=== PATIENT | female | born 1960 | race African-American/Black ===

== ENCOUNTER 2017-09-26 04:40 | Inpatient (IN) ==
[2017-09-26] MEDS ORDERED: SODIUM CHLORIDE 0.9% 500 ML IV STA (05:14)
[2017-09-26 06:00] LABS: Partial Thromboplastin Time 21.5 SECS (0-40)
[2017-09-26 06:03] LABS: Apearance,Urine Slightly Hazy (Clear); Bilirubin,Urine Negative (Negative); Blood, Urine Negative (Negative); Glucose,Urine (UA) Negative (Negative); Hyaline Casts,Urine 1 /LPF (0-3); Ketones,Urine Negative (Negative); Mucus,Urine Moderate /LPF (Occasional); Nitrite,Urine Negative (Negative); Protein,Urine Negative; RBC,Urine 1 /HPF (0-4); Squamous Epithelial Cell,Urine Occasional /HPF (0-10); Urine Color Yellow (Yellow); Urine Specific Gravity 1.016 (1.001-1.035); Urine Urobilinogen < 2.0 EU/DL (0.2-1.0); WBC,Urine 1 /HPF (0-6)
[2017-09-26 06:04] LABS: Basophils % 0.2 % (0.0-0.8); Eosinophils # 0.1 10*3/uL (0.0-0.87); Immature Granulocytes % 0.7 %; Immature Granulocytes Absolute 0.07 #; Lymphocytes % 9.9 % (21.3-54.2); Mean Corpuscular HGB Conc 24.6 GM/DL (32-36); Mean Corpuscular Hemoglobin 15 PG (27-34); Mean Corpuscular Volume 59.6 FL (87-102); Monocytes # 0.4 10*3/uL (0.11-0.8); Monocytes % 4.5 % (1.7-12.7); NRBC # 0.08 10*3/uL; Neutrophils # 8.2 10*3/uL (1.4-7.4); Neutrophils % 83.7 % (38.7-73.9); Platelet Count 83 T/CUMM (130-400); Red Cell Distribution Width 19.4 % (9.3-17.3); White Blood Count 9.8 T/CUMM (4-12)
[2017-09-26 06:08] LABS: Hematocrit 16.7 VOL% (35.7-47.0); Hemoglobin 4.4 GM/DL (12.0-16.0)
[2017-09-26 06:25] LABS: Alanine Aminotransferase < 9 U/L (13-56); Albumin 2.7 G/DL (3.4-5.0); Alkaline Phosphatase 81 U/L (45-117); Aspartate Amino Transferase 12 U/L (0-37); Bilirubin,Total < 0.39 MG/DL (0.2-1.0); Blood Urea Nitrogen 10 MG/DL (7-18); Glucose 119 MG/DL (74-106); Osmolality,Calculated 276.5 MOS/KG (273-304); Potassium 3.2 MMOL/L (3.5-5.1); Sodium 139 MMOL/L (136-145); Total Protein 8.8 G/DL (6.4-8.3)
[2017-09-26 06:59] LABS: Eosinophils 1 % (0-10); Lymphocytes 6 % (20-55); Segmented Neutrophils 90 % (50-85); Total Cells Counted 100
[2017-09-26 07:00] LABS: Hypochromasia 3+; Microcytosis 2+; Platelet Estimate Decreased; Target Cells Slight
[2017-09-26] MEDS ORDERED: POTASSIUM CHLORIDE 20 MEQ TABLET PO STA (07:07)
[2017-09-26] MEDS ORDERED: SODIUM CHLORIDE 0.9% 1,000 ML IV PRN (07:13)
[2017-09-26] MEDS ORDERED: POTASSIUM CHLORIDE 20 MEQ TABLET PO ONE (07:19)
[2017-09-26] MEDS ORDERED: ACETAMINOPHEN 500 MG TABLET PO PRN (11:54)
[2017-09-26] MEDS ORDERED: amLODIPine 5 MG TABLET PO SCH (12:00)
[2017-09-26] MEDS ORDERED: hydrALAZINE 20 MG/1 ML VIAL IV PRN (19:35)
[2017-09-27] MEDS ORDERED: ENALAPRIL 2.5 MG/2 ML VIAL IV PRN (00:35)
[2017-09-27 06:53] LABS: Basophils % 0.4 % (0.0-0.8); Eosinophils # 0.1 10*3/uL (0.0-0.87); Eosinophils % 1.3 % (0.00-10.9); Hematocrit 28.1 VOL% (35.7-47.0); Immature Granulocytes % 0.5 %; Immature Granulocytes Absolute 0.04 #; Lymphocytes # 1.5 10*3/uL (1.4-4.0); Lymphocytes % 19.7 % (21.3-54.2); Mean Corpuscular HGB Conc 29.2 GM/DL (32-36); Mean Corpuscular Hemoglobin 20 PG (27-34); Monocytes # 0.6 10*3/uL (0.11-0.8); Monocytes % 7.8 % (1.7-12.7); NRBC # 0.08 10*3/uL; Neutrophils # 5.2 10*3/uL (1.4-7.4); Neutrophils % 70.3 % (38.7-73.9); Red Cell Distribution Width 26.7 % (9.3-17.3); White Blood Count 7.4 T/CUMM (4-12)
[2017-09-27 06:58] LABS: Hemoglobin 8.2 GM/DL (12.0-16.0); Platelet Count 67 T/CUMM (130-400); Red Blood Count 4.07 MC/CUMM (3.8-5.5)
[2017-09-27 07:20] LABS: % Iron Saturation 5.3 % (18-50); Calcium 8.1 MG/DL (8.5-10.1); Osmolality,Calculated 271.7 MOS/KG (273-304); Potassium 3.5 MMOL/L (3.5-5.1)
[2017-09-27 07:23] LABS: Hypochromasia 2+; Microcytosis 1+; Ovalocytes Few; Spherocytes Few; Target Cells Slight
[2017-09-27 07:24] LABS: Platelet Estimate Decreased
[2017-09-27] MEDS ORDERED: amLODIPine 10 MG TABLET PO SCH (09:00)
[2017-09-27] MEDS ORDERED: hydroCHLOROthiazide 12.5 MG CAPSULE PO SCH (09:00)
[2017-09-27] MEDS ORDERED: SEVOFLURANE 1 UNIT/15 MINUTE INH ONE (10:51)
[2017-09-27] MEDS ORDERED: PROPOFOL 200 MG/20 ML VIAL IV ONE (10:51)
[2017-09-27] MEDS ORDERED: fentaNYL 100 MCG/2 ML VIAL ONE (10:51)
[2017-09-27] MEDS ORDERED: ONDANSETRON 4 MG/2 ML VIAL ONE (10:52)
[2017-09-27] MEDS ORDERED: SODIUM CHLORIDE 0.9% 1,000 ML IV ONE (10:52)
[2017-09-27] MEDS ORDERED: MIDAZOLAM 2 MG/2 ML VIAL ONE (10:52)
[2017-09-27 14:25] VITALS: BP 161/92
== END 2017-09-27 14:45 | disposition hospice, home (50) | DRG 744 ==
LOC: EDUNIT# → N.ED 04:40 → N.EDINP 07:58 → N.4E 09:48
PROVIDERS: ADMIT Hospitalist; ATTEND Hospitalist

== ENCOUNTER 2018-09-19 15:40 | Inpatient (IN) ==
[2018-09-19] MEDS ORDERED: MORPHINE 4 MG/1 ML VIAL IV STA (15:50)
[2018-09-19] MEDS ORDERED: ONDANSETRON 4 MG/2 ML VIAL IV STA (15:51)
[2018-09-19] MEDS ORDERED: ASPIRIN 325 MG TABLET PO STA ×2 (15:52→15:54)
[2018-09-19] MEDS ORDERED: HEPARIN 5,000 UNIT/1 ML VIAL IV ONE (15:54)
[2018-09-19] MEDS ORDERED: HEPARIN 5,000 UNIT/1 ML VIAL ONE ×2 (15:54→16:15)
[2018-09-19] MEDS ORDERED: LIDOCAINE 1% 20 ML VIAL ONE (16:00)
[2018-09-19] MEDS ORDERED: HEPARIN/NACL 0.9% 2 UNITS/ML 1,500 ML IV ONE (16:00)
[2018-09-19 16:09] LABS: Basophils % 0.3 % (0.0-0.8); Eosinophils # 0.2 10*3/uL (0.0-0.87); Eosinophils % 1.6 % (0.00-10.9); Immature Granulocytes % 0.7 %; Immature Granulocytes Absolute 0.08 #; Lymphocytes # 1.2 10*3/uL (1.4-4.0); Lymphocytes % 10.1 % (21.3-54.2); Mean Corpuscular HGB Conc 26.8 GM/DL (32-36); Mean Corpuscular Hemoglobin 18 PG (27-34); Mean Corpuscular Volume 65.7 FL (87-102); Monocytes # 0.6 10*3/uL (0.11-0.8); Monocytes % 4.9 % (1.7-12.7); NRBC # 0.05 10*3/uL; Neutrophils # 9.8 10*3/uL (1.4-7.4); Neutrophils % 82.4 % (38.7-73.9); Platelet Count 451 T/CUMM (130-400); Red Blood Count 2.89 MC/CUMM (3.8-5.5); Red Cell Distribution Width 18.4 % (9.3-17.3); White Blood Count 11.9 T/CUMM (4-12)
[2018-09-19] MEDS ORDERED: fentaNYL 100 MCG/2 ML VIAL ONE (16:09)
[2018-09-19] MEDS ORDERED: MIDAZOLAM 2 MG/2 ML VIAL ONE (16:09)
[2018-09-19] MEDS ORDERED: EPTIFIBATIDE 75 MG/100 ML BOTTLE IV ONE (16:10)
[2018-09-19] MEDS ORDERED: EPTIFIBATIDE 20,000 MCG/10 ML VIAL ONE (16:10)
[2018-09-19] MEDS ORDERED: AMIODARONE 150 MG/3 ML VIAL ONE ×3 (16:17→17:21)
[2018-09-19] MEDS ORDERED: NITROGLYCERIN DRIP 50 MG/250 ML BOTTLE IV ONE (16:18)
[2018-09-19 16:19] LABS: Hemoglobin 5.1 GM/DL (12.0-16.0); INR 1.1; PT Patient Result 11.1 SECS; Partial Thromboplastin Time 26.2 SECS (0-40)
[2018-09-19 16:35] LABS: Alanine Aminotransferase 9 U/L (13-56); Alkaline Phosphatase 88 U/L (45-117); Aspartate Amino Transferase 11 U/L (0-37); Bilirubin,Total < 0.39 MG/DL (0.2-1.0); Blood Urea Nitrogen 13 MG/DL (7-18); Calcium 8.9 MG/DL (8.5-10.1); Glucose 125 MG/DL (74-106); Osmolality,Calculated 275.7 MOS/KG (273-304); Potassium 3.4 MMOL/L (3.5-5.1); Sodium 138 MMOL/L (136-145); Total Protein 8.7 G/DL (6.4-8.3)
[2018-09-19] MEDS ORDERED: SODIUM CHLORIDE 0.9% 1,000 ML IV PRN ×2 (16:50→16:59)
[2018-09-19] MEDS ORDERED: BISACODYL 5 MG TABLET PO PRN (16:59)
[2018-09-19] MEDS ORDERED: MAGNESIUM SULF RIDER 2 GM in PREMIX 1 EACH IV PRN (16:59)
[2018-09-19] MEDS ORDERED: ZALEPLON 5 MG CAPSULE PO PRN (16:59)
[2018-09-19] MEDS ORDERED: ONDANSETRON 4 MG/2 ML VIAL IV PRN (16:59)
[2018-09-19] MEDS ORDERED: MAGNESIUM SULF RIDER 4 GM in PREMIX 1 EACH IV PRN (16:59)
[2018-09-19] MEDS ORDERED: guaiFENesin/DM ER 600-30 MG TABLET PO PRN (16:59)
[2018-09-19] MEDS ORDERED: ACETAMINOPHEN 325 MG TABLET PO PRN (16:59)
[2018-09-19] MEDS ORDERED: DOCUSATE SODIUM 100 MG CAPSULE PO PRN (16:59)
[2018-09-19] MEDS ORDERED: PANTOPRAZOLE 40 MG TABLET PO SCH (16:59)
[2018-09-19] MEDS ORDERED: CLOPIDOGREL 300 MG TABLET ONE (17:20)
[2018-09-19 17:33] LABS: Hypochromasia 2+
[2018-09-19 17:35] LABS: Microcytosis 1+
[2018-09-19 17:36] LABS: Ovalocytes Slight
[2018-09-19 17:38] LABS: Platelet Estimate Normal
[2018-09-19] MEDS ORDERED: SODIUM CHLORIDE 0.9% 1,000 ML IV SCH (18:30)
[2018-09-19] MEDS ORDERED: ATROPINE 1 MG/10 ML SYRINGE ONE (18:50)
[2018-09-19] MEDS ORDERED: ACETAMINOPHEN 500 MG TABLET PO PRN (19:03)
[2018-09-19] MEDS: ROSUVASTATIN 20 MG TABLET PO SCH (21:02)
[2018-09-19] MEDS: METOPROLOL TARTRATE 25 MG TABLET PO SCH (21:02)
[2018-09-19] MEDS: PANTOPRAZOLE 40 MG TABLET PO SCH (21:02)
[2018-09-19] MEDS: POTASSIUM CHLORIDE 20 MEQ TABLET PO PRN (21:02)
[2018-09-20] MEDS: POTASSIUM CHLORIDE 20 MEQ TABLET PO PRN ×2 (00:18→06:39)
[2018-09-20 06:08] LABS: Basophils % 0.1 % (0.0-0.8); Eosinophils % 0.1 % (0.00-10.9); Hematocrit 28.9 VOL% (35.7-47.0); Hemoglobin 8.8 GM/DL (12.0-16.0); Immature Granulocytes % 0.7 %; Immature Granulocytes Absolute 0.05 #; Lymphocytes # 0.6 10*3/uL (1.4-4.0); Lymphocytes % 8.8 % (21.3-54.2); Mean Corpuscular HGB Conc 30.4 GM/DL (32-36); Mean Corpuscular Hemoglobin 23 PG (27-34); Mean Corpuscular Volume 76.5 FL (87-102); Monocytes # 0.4 10*3/uL (0.11-0.8); Monocytes % 5.3 % (1.7-12.7); NRBC # 0.03 10*3/uL; Platelet Count 308 T/CUMM (130-400); Red Blood Count 3.78 MC/CUMM (3.8-5.5); Red Cell Distribution Width 24.4 % (9.3-17.3)
[2018-09-20 06:27] LABS: CKMB % 10.6 %
[2018-09-20 06:28] LABS: Calcium 8.2 MG/DL (8.5-10.1); Osmolality,Calculated 277.4 MOS/KG (273-304); Risk Ratio 3.1; VLDL CHOLESTEROL 20.6 MG/DL
[2018-09-20 06:36] LABS: Troponin I 20.5 NG/ML (0.00-0.045)
[2018-09-20 07:12] LABS: Anisocytosis 1+; Hypochromasia 1+; Platelet Estimate Normal
[2018-09-20 07:13] LABS: Target Cells Few
[2018-09-20 07:43] LABS: Basophils % 0.1 % (0.0-0.8); Eosinophils % 0.3 % (0.00-10.9); Hematocrit 28.6 VOL% (35.7-47.0); Hemoglobin 8.9 GM/DL (12.0-16.0); Immature Granulocytes % 0.6 %; Immature Granulocytes Absolute 0.04 #; Lymphocytes # 0.6 10*3/uL (1.4-4.0); Lymphocytes % 8.3 % (21.3-54.2); Mean Corpuscular HGB Conc 31.1 GM/DL (32-36); Mean Corpuscular Hemoglobin 24 PG (27-34); Mean Corpuscular Volume 77.1 FL (87-102); Mean Platelet Volume 8.9 FL (9.6-12.0); Monocytes # 0.4 10*3/uL (0.11-0.8); Monocytes % 5.9 % (1.7-12.7); NRBC # 0.03 10*3/uL; Neutrophils % 84.8 % (38.7-73.9); Platelet Count 312 T/CUMM (130-400); Red Blood Count 3.71 MC/CUMM (3.8-5.5); Red Cell Distribution Width 24.3 % (9.3-17.3); White Blood Count 7.1 T/CUMM (4-12)
[2018-09-20 07:48] LABS: Anisocytosis 2+; Platelet Estimate Normal; Poikilocytosis 1+
[2018-09-20] MEDS: CLOPIDOGREL 75 MG TABLET PO SCH (08:31)
[2018-09-20] MEDS: ASPIRIN EC 81 MG TABLET PO SCH (08:31)
[2018-09-20] MEDS: PANTOPRAZOLE 40 MG TABLET PO SCH ×2 (08:31→21:31)
[2018-09-20] MEDS ORDERED: diphenhydrAMINE CAP 25 MG CAPSULE PO PRN (09:51)
[2018-09-20] MEDS ORDERED: MAGNESIUM HYDROXIDE SUSP 30 ML UDCUP PO PRN (09:51)
[2018-09-20 10:01] LABS: % Iron Saturation 18.1 % (18-50); Ferritin 14.4 ng/ml (8-252)
[2018-09-20 10:41] LABS: Basophils % 0.2 % (0.0-0.8); Eosinophils % 0.3 % (0.00-10.9); Hematocrit 32.4 VOL% (35.7-47.0); Immature Granulocytes % 0.5 %; Immature Granulocytes Absolute 0.04 #; Lymphocytes # 0.9 10*3/uL (1.4-4.0); Mean Corpuscular HGB Conc 30.9 GM/DL (32-36); Mean Corpuscular Hemoglobin 24 PG (27-34); Mean Corpuscular Volume 77.7 FL (87-102); Mean Platelet Volume 8.8 FL (9.6-12.0); Monocytes # 0.6 10*3/uL (0.11-0.8); Monocytes % 6.4 % (1.7-12.7); NRBC # 0.05 10*3/uL; Neutrophils # 7.2 10*3/uL (1.4-7.4); Neutrophils % 82.6 % (38.7-73.9); Platelet Count 329 T/CUMM (130-400); Red Blood Count 4.17 MC/CUMM (3.8-5.5); Red Cell Distribution Width 24.4 % (9.3-17.3); White Blood Count 8.8 T/CUMM (4-12)
[2018-09-20 11:23] LABS: Hypochromasia 1+; Platelet Estimate Normal
[2018-09-20 11:24] LABS: Anisocytosis Slight
[2018-09-20 11:26] LABS: Folate 12.7 NG/ML (5.4-24.0); Vitamin B12 352 PG/ML (211-911)
[2018-09-20] MEDS: METOPROLOL TARTRATE 25 MG TABLET PO SCH ×2 (12:42→21:31)
[2018-09-20 16:10] LABS: Sedimentation Rate-Westergren 102 MM/HR (0-30)
[2018-09-20 16:13] LABS: Basophils % 0.3 % (0.0-0.8); Eosinophils # 0.1 10*3/uL (0.0-0.87); Eosinophils % 0.7 % (0.00-10.9); Hematocrit 30.2 VOL% (35.7-47.0); Hemoglobin 9.4 GM/DL (12.0-16.0); Immature Granulocytes % 0.6 %; Immature Granulocytes Absolute 0.05 #; Lymphocytes % 11.9 % (21.3-54.2); Mean Corpuscular HGB Conc 31.1 GM/DL (32-36); Mean Corpuscular Hemoglobin 24 PG (27-34); Mean Corpuscular Volume 77.2 FL (87-102); Mean Platelet Volume 9.3 FL (9.6-12.0); Monocytes # 0.5 10*3/uL (0.11-0.8); Monocytes % 5.5 % (1.7-12.7); NRBC # 0.03 10*3/uL; Platelet Count 319 T/CUMM (130-400); Red Blood Count 3.91 MC/CUMM (3.8-5.5); Red Cell Distribution Width 24.3 % (9.3-17.3); White Blood Count 8.6 T/CUMM (4-12)
[2018-09-20] MEDS: ROSUVASTATIN 20 MG TABLET PO SCH (21:31)
[2018-09-20 22:45] LABS: Basophils % 0.1 % (0.0-0.8); Eosinophils # 0.1 10*3/uL (0.0-0.87); Eosinophils % 1.4 % (0.00-10.9); Hematocrit 29.2 VOL% (35.7-47.0); Hemoglobin 8.9 GM/DL (12.0-16.0); Immature Granulocytes % 0.4 %; Immature Granulocytes Absolute 0.03 #; Lymphocytes % 13.1 % (21.3-54.2); Mean Corpuscular HGB Conc 30.5 GM/DL (32-36); Mean Corpuscular Hemoglobin 23 PG (27-34); Mean Corpuscular Volume 76.4 FL (87-102); Monocytes # 0.4 10*3/uL (0.11-0.8); Monocytes % 5.1 % (1.7-12.7); NRBC # 0.02 10*3/uL; Neutrophils # 6.1 10*3/uL (1.4-7.4); Neutrophils % 79.9 % (38.7-73.9); Platelet Count 294 T/CUMM (130-400); Red Blood Count 3.82 MC/CUMM (3.8-5.5); Red Cell Distribution Width 24.4 % (9.3-17.3); White Blood Count 7.6 T/CUMM (4-12)
[2018-09-21 01:05] LABS: Hypochromasia Slight; Platelet Estimate Adequate; Polychromasia Few
[2018-09-21 05:39] LABS: Basophils % 0.4 % (0.0-0.8); Eosinophils # 0.2 10*3/uL (0.0-0.87); Eosinophils % 2.1 % (0.00-10.9); Hemoglobin 9.1 GM/DL (12.0-16.0); Immature Granulocytes % 0.4 %; Immature Granulocytes Absolute 0.03 #; Lymphocytes # 0.9 10*3/uL (1.4-4.0); Lymphocytes % 10.6 % (21.3-54.2); Mean Corpuscular HGB Conc 30.3 GM/DL (32-36); Mean Corpuscular Hemoglobin 23 PG (27-34); Mean Corpuscular Volume 76.5 FL (87-102); Mean Platelet Volume 9.4 FL (9.6-12.0); Monocytes # 0.4 10*3/uL (0.11-0.8); Monocytes % 4.4 % (1.7-12.7); NRBC # 0.02 10*3/uL; Neutrophils # 6.7 10*3/uL (1.4-7.4); Neutrophils % 82.1 % (38.7-73.9); Platelet Count 322 T/CUMM (130-400); Red Blood Count 3.92 MC/CUMM (3.8-5.5); Red Cell Distribution Width 24.7 % (9.3-17.3); White Blood Count 8.1 T/CUMM (4-12)
[2018-09-21 05:55] LABS: Calcium 8.4 MG/DL (8.5-10.1); Osmolality,Calculated 271.8 MOS/KG (273-304)
[2018-09-21 06:34] LABS: Hypochromasia 1+; Microcytosis 1+; Platelet Estimate Normal; Polychromasia Few; Target Cells Few
[2018-09-21] MEDS: PANTOPRAZOLE 40 MG TABLET PO SCH ×2 (08:52→21:07)
[2018-09-21] MEDS: ASPIRIN EC 81 MG TABLET PO SCH (08:52)
[2018-09-21] MEDS: METOPROLOL TARTRATE 25 MG TABLET PO SCH ×2 (08:52→21:07)
[2018-09-21] MEDS: CLOPIDOGREL 75 MG TABLET PO SCH (08:52)
[2018-09-21] MEDS: ROSUVASTATIN 20 MG TABLET PO SCH (21:07)
[2018-09-22 06:34] LABS: Basophils % 0.3 % (0.0-0.8); Eosinophils # 0.2 10*3/uL (0.0-0.87); Hematocrit 29.3 VOL% (35.7-47.0); Hemoglobin 8.8 GM/DL (12.0-16.0); Immature Granulocytes % 0.3 %; Immature Granulocytes Absolute 0.02 #; Lymphocytes # 0.7 10*3/uL (1.4-4.0); Lymphocytes % 10.4 % (21.3-54.2); Mean Corpuscular Hemoglobin 23 PG (27-34); Mean Corpuscular Volume 76.1 FL (87-102); Mean Platelet Volume 9.4 FL (9.6-12.0); Monocytes # 0.4 10*3/uL (0.11-0.8); Monocytes % 5.8 % (1.7-12.7); Neutrophils # 5.7 10*3/uL (1.4-7.4); Neutrophils % 80.2 % (38.7-73.9); Platelet Count 324 T/CUMM (130-400); Red Blood Count 3.85 MC/CUMM (3.8-5.5); Red Cell Distribution Width 25.2 % (9.3-17.3); White Blood Count 7.1 T/CUMM (4-12)
[2018-09-22 07:01] LABS: Calcium 8.2 MG/DL (8.5-10.1); Potassium 3.5 MMOL/L (3.5-5.1)
[2018-09-22] MEDS: CLOPIDOGREL 75 MG TABLET PO SCH (08:22)
[2018-09-22] MEDS: ASPIRIN EC 81 MG TABLET PO SCH (08:22)
[2018-09-22] MEDS: METOPROLOL TARTRATE 25 MG TABLET PO SCH (08:22)
[2018-09-22] MEDS: PANTOPRAZOLE 40 MG TABLET PO SCH (08:22)
[2018-09-22] MEDS ORDERED: METOPROLOL TARTRATE 50 MG TABLET PO SCH (12:22)
[2018-09-22 16:48] VITALS: BP 159/92
== END 2018-09-22 18:00 | disposition home or self-care (01) | DRG 246 ==
LOC: EDBD → EDUNIT# → N.ED 15:40 → N.ICU 15:58 → SUATTDRO 16:03 → N.EDINP 16:03 → N.ICU 16:18 → N.TELEN 09-20 14:43
PROVIDERS: ADMIT Internal Medicine Cardiovascular Disease; ATTEND Internal Medicine
PROC: CLCCHCL (ICD-10-PCS; 2018-09-19 16:15)

== ENCOUNTER 2018-11-10 08:48 | Inpatient (IN) ==
[2018-11-10 10:24] LABS: Albumin 2.1 G/DL (3.4-5.0); Bilirubin,Total 0.4 MG/DL (0.2-1.0); Calcium 7.9 MG/DL (8.5-10.1); Osmolality,Calculated 259.8 MOS/KG (273-304); Potassium 3.8 MMOL/L (3.5-5.1); Total Protein 8.2 G/DL (6.4-8.3)
[2018-11-10 10:43] LABS: Basophils % 0.2 % (0.0-0.8); Eosinophils % 0.2 % (0.00-10.9); Immature Granulocytes % 1.4 %; Immature Granulocytes Absolute 0.17 #; Lymphocytes # 0.9 10*3/uL (1.4-4.0); Lymphocytes % 7.2 % (21.3-54.2); Mean Corpuscular HGB Conc 29.9 GM/DL (32-36); Mean Corpuscular Hemoglobin 23 PG (27-34); Mean Corpuscular Volume 78.5 FL (87-102); Mean Platelet Volume 9.1 FL (9.6-12.0); Monocytes # 0.9 10*3/uL (0.11-0.8); Monocytes % 7.5 % (1.7-12.7); NRBC # 0.03 10*3/uL; Neutrophils # 10.3 10*3/uL (1.4-7.4); Neutrophils % 83.5 % (38.7-73.9); Platelet Count 355 T/CUMM (130-400); Red Blood Count 2.09 MC/CUMM (3.8-5.5); Red Cell Distribution Width 21.4 % (9.3-17.3); White Blood Count 12.3 T/CUMM (4-12)
[2018-11-10 10:52] LABS: Hemoglobin 4.9 GM/DL (12.0-16.0)
[2018-11-10 10:53] LABS: Hematocrit 16.4 VOL% (35.7-47.0)
[2018-11-10] MEDS ORDERED: SODIUM CHLORIDE 0.9% 1,000 ML IV PRN ×3 (11:10→22:43)
[2018-11-10] MEDS ORDERED: ONDANSETRON 4 MG/2 ML VIAL IV PRN (12:46)
[2018-11-10] MEDS ORDERED: ACETAMINOPHEN 500 MG TABLET PO STA (13:37)
[2018-11-10] MEDS ORDERED: ACETAMINOPHEN 500 MG TABLET ONE (13:38)
[2018-11-10] MEDS: LEVOFLOXACIN INJ 500 MG in PREMIX 1 EACH IV SCH (17:16)
[2018-11-10 22:15] LABS: Hematocrit 23.3 VOL% (35.7-47.0)
[2018-11-10 22:16] LABS: Hemoglobin 7.3 GM/DL (12.0-16.0)
[2018-11-10] MEDS: metroNIDAZOLE INJ 500 MG in PREMIX 1 EACH IV SCH (22:18)
[2018-11-10] MEDS: METOPROLOL TARTRATE 50 MG TABLET PO SCH (22:18)
[2018-11-10] MEDS: ROSUVASTATIN 10 MG TABLET PO SCH (22:18)
[2018-11-10] MEDS: PANTOPRAZOLE 40 MG VIAL IV SCH (22:18)
[2018-11-10 23:05] LABS: Apearance,Urine CLOUDY (Clear); Bacteria,Urine Occasional /HPF (Few); Bilirubin,Urine Negative (Negative); Blood, Urine Small mg/dL (Negative); Glucose,Urine (UA) Negative (Negative); Granular Casts,Urine 7 /LPF (0-1); Hyaline Casts,Urine 13 /LPF (0-3); Ketones,Urine Negative (Negative); Mucus,Urine Occasional /LPF (Occasional); Nitrite,Urine Negative (Negative); Protein,Urine 30 MG/DL; RBC,Urine 1 /HPF (0-4); Squamous Epithelial Cell,Urine Occasional /HPF (0-10); Urine Color Yellow (Yellow); Urine Specific Gravity 1.023 (1.001-1.035); Urine Urobilinogen < 2.0 EU/DL (0.2-1.0); WBC,Urine 7 /HPF (0-6)
[2018-11-11] MEDS ORDERED: SODIUM CHLORIDE 0.9% 1,000 ML IV PRN (00:03)
[2018-11-11] MEDS: metroNIDAZOLE INJ 500 MG in PREMIX 1 EACH IV SCH ×3 (05:32→18:38)
[2018-11-11 06:20] LABS: Basophils % 0.3 % (0.0-0.8); Eosinophils % 0.3 % (0.00-10.9); Hematocrit 27.5 VOL% (35.7-47.0); Hemoglobin 8.9 GM/DL (12.0-16.0); Immature Granulocytes % 1.7 %; Immature Granulocytes Absolute 0.19 #; Lymphocytes % 8.6 % (21.3-54.2); Mean Corpuscular HGB Conc 32.4 GM/DL (32-36); Mean Corpuscular Hemoglobin 26 PG (27-34); Mean Corpuscular Volume 81.4 FL (87-102); Mean Platelet Volume 8.7 FL (9.6-12.0); Monocytes # 0.8 10*3/uL (0.11-0.8); Monocytes % 7.1 % (1.7-12.7); NRBC # 0.06 10*3/uL; Neutrophils # 9.2 10*3/uL (1.4-7.4); Platelet Count 286 T/CUMM (130-400); Red Blood Count 3.38 MC/CUMM (3.8-5.5); Red Cell Distribution Width 17.4 % (9.3-17.3); White Blood Count 11.3 T/CUMM (4-12)
[2018-11-11 06:41] LABS: Calcium 8.3 MG/DL (8.5-10.1); Osmolality,Calculated 263.5 MOS/KG (273-304); Potassium 3.9 MMOL/L (3.5-5.1)
[2018-11-11] MEDS ORDERED: PANTOPRAZOLE 40 MG VIAL IV SCH (09:00)
[2018-11-11] MEDS ORDERED: PROPOFOL 200 MG/20 ML VIAL IV ONE (09:09)
[2018-11-11] MEDS: METOPROLOL TARTRATE 50 MG TABLET PO SCH ×2 (10:31→21:03)
[2018-11-11] MEDS: FERROUS SULFATE 325 MG TABLET PO SCH (10:31)
[2018-11-11] MEDS: ASPIRIN EC 81 MG TABLET PO SCH (10:32)
[2018-11-11] MEDS: BISACODYL 5 MG TABLET PO SCH ×2 (10:45→17:31)
[2018-11-11] MEDS ORDERED: hydrALAZINE 20 MG/1 ML VIAL IV PRN (13:13)
[2018-11-11] MEDS: LEVOFLOXACIN INJ 500 MG in PREMIX 1 EACH IV SCH (17:33)
[2018-11-11] MEDS: PANTOPRAZOLE 40 MG TABLET PO SCH (21:03)
[2018-11-11] MEDS: ROSUVASTATIN 10 MG TABLET PO SCH (21:03)
[2018-11-12] MEDS: BISACODYL 5 MG TABLET PO SCH (01:14)
[2018-11-12] MEDS: metroNIDAZOLE INJ 500 MG in PREMIX 1 EACH IV SCH ×3 (02:33→17:47)
[2018-11-12] MEDS: ACETAMINOPHEN 325 MG TABLET PO PRN (04:56)
[2018-11-12 06:26] LABS: Calcium 8.1 MG/DL (8.5-10.1); Osmolality,Calculated 260.7 MOS/KG (273-304); Potassium 3.5 MMOL/L (3.5-5.1)
[2018-11-12 06:41] LABS: Basophils % 0.2 % (0.0-0.8); Eosinophils # 0.1 10*3/uL (0.0-0.87); Eosinophils % 0.9 % (0.00-10.9); Hematocrit 25.5 VOL% (35.7-47.0); Immature Granulocytes % 1.2 %; Immature Granulocytes Absolute 0.11 #; Lymphocytes # 0.7 10*3/uL (1.4-4.0); Lymphocytes % 7.2 % (21.3-54.2); Mean Corpuscular HGB Conc 31.4 GM/DL (32-36); Mean Corpuscular Hemoglobin 26 PG (27-34); Mean Corpuscular Volume 82.5 FL (87-102); Mean Platelet Volume 8.7 FL (9.6-12.0); Monocytes # 0.6 10*3/uL (0.11-0.8); Monocytes % 6.9 % (1.7-12.7); NRBC # 0.02 10*3/uL; Neutrophils # 7.7 10*3/uL (1.4-7.4); Neutrophils % 83.6 % (38.7-73.9); Platelet Count 285 T/CUMM (130-400); Red Blood Count 3.09 MC/CUMM (3.8-5.5); Red Cell Distribution Width 18.1 % (9.3-17.3); White Blood Count 9.3 T/CUMM (4-12)
[2018-11-12] MEDS: METOPROLOL TARTRATE 50 MG TABLET PO SCH ×2 (08:55→20:59)
[2018-11-12] MEDS: ASPIRIN EC 81 MG TABLET PO SCH (08:55)
[2018-11-12] MEDS: PANTOPRAZOLE 40 MG TABLET PO SCH ×2 (08:55→20:59)
[2018-11-12] MEDS: FERROUS SULFATE 325 MG TABLET PO SCH (08:55)
[2018-11-12] MEDS ORDERED: VANCOMYCIN INJ 1,000 MG in SODIUM CHLORIDE 0.9% 250 ML IV SCH (09:00)
[2018-11-12] MEDS ORDERED: VANCOMYCIN INJ 1,500 MG in SODIUM CHLORIDE 0.9% 500 ML IV ONE (10:00)
[2018-11-12] MEDS: SODIUM CHLORIDE 0.9% 1,000 ML IV SCH (10:30)
[2018-11-12] MEDS: FUROSEMIDE 20 MG TABLET PO SCH (11:52)
[2018-11-12] MEDS: LEVOFLOXACIN INJ 500 MG in PREMIX 1 EACH IV SCH (17:46)
[2018-11-12] MEDS ORDERED: POLYETHYLENE GLYCOL POWDER 255 GM BOTTLE PO ONE (18:00)
[2018-11-12] MEDS: ROSUVASTATIN 10 MG TABLET PO SCH (20:59)
[2018-11-12] MEDS ORDERED: MAGNESIUM CITRATE 300 ML BOTTLE PO ONE (21:00)
[2018-11-12] MEDS: VANCOMYCIN INJ 1,250 MG in SODIUM CHLORIDE 0.9% 250 ML IV SCH (22:12)
[2018-11-13] MEDS: metroNIDAZOLE INJ 500 MG in PREMIX 1 EACH IV SCH ×3 (01:38→17:46)
[2018-11-13 05:13] LABS: Calcium 7.9 MG/DL (8.5-10.1); Osmolality,Calculated 270.8 MOS/KG (273-304); Potassium 3.2 MMOL/L (3.5-5.1)
[2018-11-13 05:14] LABS: Basophils % 0.3 % (0.0-0.8); Eosinophils # 0.1 10*3/uL (0.0-0.87); Eosinophils % 1.2 % (0.00-10.9); Hematocrit 24.9 VOL% (35.7-47.0); Hemoglobin 7.9 GM/DL (12.0-16.0); Immature Granulocytes % 1.1 %; Lymphocytes # 0.7 10*3/uL (1.4-4.0); Lymphocytes % 7.4 % (21.3-54.2); Mean Corpuscular HGB Conc 31.7 GM/DL (32-36); Mean Corpuscular Hemoglobin 26 PG (27-34); Mean Corpuscular Volume 82.5 FL (87-102); Mean Platelet Volume 8.8 FL (9.6-12.0); Monocytes # 0.6 10*3/uL (0.11-0.8); Monocytes % 7.1 % (1.7-12.7); Neutrophils # 7.3 10*3/uL (1.4-7.4); Neutrophils % 82.9 % (38.7-73.9); Platelet Count 281 T/CUMM (130-400); Red Blood Count 3.02 MC/CUMM (3.8-5.5); Red Cell Distribution Width 18.1 % (9.3-17.3); White Blood Count 8.8 T/CUMM (4-12)
[2018-11-13] MEDS ORDERED: FUROSEMIDE 20 MG/2 ML VIAL IV PRN (06:59)
[2018-11-13] MEDS ORDERED: SODIUM CHLORIDE 0.9% 1,000 ML IV PRN (06:59)
[2018-11-13] MEDS ORDERED: POTASSIUM CHLORIDE RIDER 10 MEQ in PREMIX 1 EACH IV PRN (09:19)
[2018-11-13] MEDS: FUROSEMIDE 20 MG TABLET PO SCH (09:53)
[2018-11-13] MEDS: PANTOPRAZOLE 40 MG TABLET PO SCH ×2 (09:53→20:35)
[2018-11-13] MEDS: ASPIRIN EC 81 MG TABLET PO SCH (09:53)
[2018-11-13] MEDS: FERROUS SULFATE 325 MG TABLET PO SCH (09:53)
[2018-11-13] MEDS: METOPROLOL TARTRATE 50 MG TABLET PO SCH ×2 (09:53→20:35)
[2018-11-13] MEDS: VANCOMYCIN INJ 1,250 MG in SODIUM CHLORIDE 0.9% 250 ML IV SCH (09:54)
[2018-11-13] MEDS: PANTOPRAZOLE 40 MG VIAL IV SCH (11:12)
[2018-11-13] MEDS ORDERED: LIDOCAINE 2% 5 ML VIAL ONE (13:00)
[2018-11-13] MEDS ORDERED: PROPOFOL 200 MG/20 ML VIAL IV ONE (13:00)
[2018-11-13] MEDS: LEVOFLOXACIN INJ 500 MG in PREMIX 1 EACH IV SCH (16:32)
[2018-11-13] MEDS: ACETAMINOPHEN 325 MG TABLET PO PRN (17:24)
[2018-11-13] MEDS: ROSUVASTATIN 10 MG TABLET PO SCH (20:35)
[2018-11-13] MEDS: POTASSIUM CHLORIDE 20 MEQ TABLET PO PRN ×2 (20:35→23:28)
[2018-11-14] MEDS: POTASSIUM CHLORIDE 20 MEQ TABLET PO PRN (01:27)
[2018-11-14] MEDS: metroNIDAZOLE INJ 500 MG in PREMIX 1 EACH IV SCH (02:21)
[2018-11-14] MEDS: VANCOMYCIN INJ 1,250 MG in SODIUM CHLORIDE 0.9% 250 ML IV SCH (03:30)
[2018-11-14 05:16] LABS: Hematocrit 31.6 VOL% (35.7-47.0)
[2018-11-14 05:44] LABS: Calcium 7.9 MG/DL (8.5-10.1); Potassium 3.6 MMOL/L (3.5-5.1)
[2018-11-14] MEDS: SODIUM CHLORIDE 0.9% 1,000 ML IV SCH ×2 (07:19→09:46)
[2018-11-14] MEDS: ASPIRIN EC 81 MG TABLET PO SCH (09:45)
[2018-11-14] MEDS: METOPROLOL TARTRATE 50 MG TABLET PO SCH ×2 (09:45→21:12)
[2018-11-14] MEDS: PANTOPRAZOLE 40 MG TABLET PO SCH ×2 (09:45→18:19)
[2018-11-14] MEDS: FERROUS SULFATE 325 MG TABLET PO SCH (09:45)
[2018-11-14] MEDS: FUROSEMIDE 20 MG TABLET PO SCH (09:45)
[2018-11-14] MEDS: NAFCILLIN 2,000 MG in SODIUM CHLORIDE 0.9% 100 ML IV SCH ×4 (10:39→22:29)
[2018-11-14] MEDS: ROSUVASTATIN 10 MG TABLET PO SCH (21:12)
[2018-11-15] MEDS: NAFCILLIN 2,000 MG in SODIUM CHLORIDE 0.9% 100 ML IV SCH ×3 (02:22→09:40)
[2018-11-15 05:32] LABS: Basophils % 0.4 % (0.0-0.8); Eosinophils # 0.2 10*3/uL (0.0-0.87); Eosinophils % 1.5 % (0.00-10.9); Hematocrit 32.3 VOL% (35.7-47.0); Hemoglobin 10.2 GM/DL (12.0-16.0); Immature Granulocytes % 0.8 %; Immature Granulocytes Absolute 0.08 #; Lymphocytes # 0.9 10*3/uL (1.4-4.0); Mean Corpuscular HGB Conc 31.6 GM/DL (32-36); Mean Corpuscular Hemoglobin 26 PG (27-34); Mean Platelet Volume 8.4 FL (9.6-12.0); Monocytes # 0.8 10*3/uL (0.11-0.8); Monocytes % 7.9 % (1.7-12.7); Neutrophils # 7.9 10*3/uL (1.4-7.4); Neutrophils % 80.4 % (38.7-73.9); Platelet Count 276 T/CUMM (130-400); Red Blood Count 3.89 MC/CUMM (3.8-5.5); Red Cell Distribution Width 17.8 % (9.3-17.3); White Blood Count 9.9 T/CUMM (4-12)
[2018-11-15 06:00] LABS: Calcium 7.7 MG/DL (8.5-10.1); Osmolality,Calculated 273.5 MOS/KG (273-304)
[2018-11-15] MEDS ORDERED: POTASSIUM CHLORIDE 20 MEQ TABLET PO SCH (09:00)
[2018-11-15] MEDS ORDERED: POTASSIUM CHLORIDE 20 MEQ TABLET PO ONE (09:19)
[2018-11-15] MEDS: FUROSEMIDE 20 MG TABLET PO SCH (09:39)
[2018-11-15] MEDS: PANTOPRAZOLE 40 MG TABLET PO SCH (09:40)
[2018-11-15] MEDS: FERROUS SULFATE 325 MG TABLET PO SCH (09:40)
[2018-11-15] MEDS: METOPROLOL TARTRATE 50 MG TABLET PO SCH (09:40)
[2018-11-15] MEDS: ASPIRIN EC 81 MG TABLET PO SCH (09:46)
[2018-11-15] MEDS ORDERED: FLUCONAZOLE 200 MG TABLET PO ONE (10:48)
[2018-11-15 12:38] VITALS: BP 149/96
[2018-11-15] MEDS: SODIUM CHLORIDE 0.9% 1,000 ML IV SCH (14:53)
[2018-11-16] MEDS ORDERED: RIVAROXABAN 15 MG TABLET PO SCH (08:00)
== END 2018-11-15 14:52 | disposition home or self-care (01) | DRG 394 ==
LOC: EDBD → EDUNIT# → N.ED 08:48 → N.EDINP 12:46 → SUATTDRO 12:46 → N.2E 14:09
PROVIDERS: ADMIT Internal Medicine; ATTEND Hospitalist
PROC: COLONHP (2018-11-13 08:05)

== ENCOUNTER 2019-03-08 10:12 | Inpatient (IN) ==
[2019-03-08] MEDS ORDERED: SODIUM CHLORIDE 0.9% 1,000 ML IV STA (10:39)
[2019-03-08 11:29] LABS: Basophils % 0.4 % (0.0-0.8); Eosinophils # 0.5 10*3/uL (0.0-0.87); Eosinophils % 5.4 % (0.00-10.9); Hematocrit 25.4 VOL% (35.7-47.0); Hemoglobin 7.3 GM/DL (12.0-16.0); Immature Granulocytes % 0.7 %; Immature Granulocytes Absolute 0.06 #; Lymphocytes # 0.7 10*3/uL (1.4-4.0); Lymphocytes % 7.4 % (21.3-54.2); Mean Corpuscular HGB Conc 28.7 GM/DL (32-36); Mean Corpuscular Volume 73.6 FL (87-102); Mean Platelet Volume 8.4 FL (9.6-12.0); Monocytes % 6.4 % (1.7-12.7); Neutrophils % 79.7 % (38.7-73.9); Platelet Count 406 T/CUMM (130-400); Red Blood Count 3.45 MC/CUMM (3.8-5.5); Red Cell Distribution Width 17.3 % (9.3-17.3)
[2019-03-08 11:43] LABS: PT Patient Result 10.9 SECS; Partial Thromboplastin Time 25.2 SECS (0-40)
[2019-03-08 11:57] LABS: Calcium 8.6 MG/DL (8.5-10.1); Osmolality,Calculated 263.5 MOS/KG (273-304)
[2019-03-08 12:35] LABS: Hypochromasia 3+; Microcytosis 2+; Platelet Estimate Increased
[2019-03-08] MEDS ORDERED: ONDANSETRON 4 MG/2 ML VIAL IV PRN (16:41)
[2019-03-08] MEDS ORDERED: SODIUM CHLORIDE 0.9% 1,000 ML IV PRN (17:31)
[2019-03-08 18:20] LABS: Hematocrit 23.8 VOL% (35.7-47.0); Hemoglobin 6.9 GM/DL (12.0-16.0)
[2019-03-08] MEDS: SODIUM CHLORIDE 0.45% 1,000 ML IV SCH (18:39)
[2019-03-08] MEDS ORDERED: ACETAMINOPHEN 325 MG TABLET PO ONE (20:07)
[2019-03-08] MEDS ORDERED: diphenhydrAMINE CAP 25 MG CAPSULE PO ONE (20:07)
[2019-03-09 05:10] LABS: Basophils % 0.3 % (0.0-0.8); Eosinophils # 0.7 10*3/uL (0.0-0.87); Eosinophils % 8.5 % (0.00-10.9); Hematocrit 30.9 VOL% (35.7-47.0); Hemoglobin 9.4 GM/DL (12.0-16.0); Immature Granulocytes % 0.5 %; Immature Granulocytes Absolute 0.04 #; Lymphocytes # 0.5 10*3/uL (1.4-4.0); Lymphocytes % 6.3 % (21.3-54.2); Mean Corpuscular HGB Conc 30.4 GM/DL (32-36); Mean Corpuscular Volume 77.6 FL (87-102); Mean Platelet Volume 8.2 FL (9.6-12.0); Monocytes % 6.7 % (1.7-12.7); Neutrophils % 77.7 % (38.7-73.9); Platelet Count 333 T/CUMM (130-400); Red Blood Count 3.98 MC/CUMM (3.8-5.5); Red Cell Distribution Width 19.1 % (9.3-17.3); White Blood Count 7.8 T/CUMM (4-12)
[2019-03-09] MEDS: SODIUM CHLORIDE 0.45% 1,000 ML IV SCH ×2 (05:11→10:25)
[2019-03-09 05:43] LABS: Calcium 8.7 MG/DL (8.5-10.1); Osmolality,Calculated 262.4 MOS/KG (273-304)
[2019-03-09] MEDS ORDERED: PANTOPRAZOLE 40 MG TABLET PO SCH (09:00)
[2019-03-09 12:53] VITALS: BP 152/102
== END 2019-03-09 16:14 | disposition home health service (06) | DRG 181 ==
LOC: EDBD → EDUNIT# → N.ED 10:12 → N.EDINP 16:41 → N.4E 17:47
PROVIDERS: ADMIT Internal Medicine; ATTEND Internal Medicine

== ENCOUNTER 2019-06-17 06:12 | Observation (INO) ==
[2019-06-17] MEDS ORDERED: SODIUM CHLORIDE 0.9% 500 ML IV STA (06:39)
[2019-06-17] MEDS ORDERED: LORazepam 2 MG/1 ML VIAL ONE (07:56)
[2019-06-17] MEDS ORDERED: LORazepam 2 MG/1 ML VIAL IV STA (08:00)
[2019-06-17 08:08] LABS: Alanine Aminotransferase < 6 U/L (13-56); Albumin 1.9 G/DL (3.4-5.0); Alkaline Phosphatase 115 U/L (45-117); Aspartate Amino Transferase 28 U/L (0-37); Blood Urea Nitrogen 28 MG/DL (7-18); Calcium 8.5 MG/DL (8.5-10.1); Glucose 67 MG/DL (74-106); Osmolality,Calculated 284.3 MOS/KG (273-304); Total Protein 7.1 G/DL (6.4-8.3)
[2019-06-17 08:09] LABS: Basophils % 0.1 % (0.0-0.8); Eosinophils % 0.2 % (0.00-10.9); Hematocrit 22.8 VOL% (35.7-47.0); Hemoglobin 6.5 GM/DL (12.0-16.0); Immature Granulocytes % 1.8 %; Immature Granulocytes Absolute 0.19 #; Lymphocytes # 0.6 10*3/uL (1.4-4.0); Lymphocytes % 5.3 % (21.3-54.2); Mean Corpuscular HGB Conc 28.5 GM/DL (32-36); Mean Corpuscular Volume 78.1 FL (87-102); Mean Platelet Volume 9.5 FL (9.6-12.0); Monocytes % 2.7 % (1.7-12.7); NRBC # 0.02 10*3/uL; Neutrophils % 89.9 % (38.7-73.9); Red Blood Count 2.92 MC/CUMM (3.8-5.5); Red Cell Distribution Width 22.5 % (9.3-17.3); White Blood Count 10.3 T/CUMM (4-12)
[2019-06-17 08:16] LABS: Platelet Count 61 T/CUMM (130-400)
[2019-06-17 08:23] LABS: Hypochromasia 2+; Lymphocytes 1 % (20-55); Platelet Estimate Decreased; Segmented Neutrophils 97 % (50-85); Total Cells Counted 100
[2019-06-17] MEDS ORDERED: POTASSIUM CHLORIDE 20 MEQ TABLET PO STA (09:01)
[2019-06-17] MEDS ORDERED: DEXTROSE 50% 25 GM/50 ML VIAL IV STA (09:01)
[2019-06-17] MEDS ORDERED: DEXTROSE 50% 25 GM/50 ML SYRINGE IV ONE (09:17)
[2019-06-17] MEDS ORDERED: LORazepam 2 MG/1 ML VIAL IV PRN (09:35)
[2019-06-17] MEDS ORDERED: fentaNYL 25 MCG/HR PATCH TRANSDERM SCH (09:40)
[2019-06-17] MEDS ORDERED: MORPHINE 4 MG/1 ML VIAL IV PRN (11:22)
[2019-06-17 16:11] VITALS: BP 93/65
[2019-06-18] MEDS ORDERED: DESITIN 4OZ/NYSTATIN 15 GRAM MIXTURE PASTE TOP SCH (13:30)
== END 2019-06-18 16:27 | disposition hospice, home (50) ==
LOC: EDBD → EDUNIT# → N.ED 06:12 → N.EDINP 06:12 → N.4E 10:30
PROVIDERS: ADMIT Internal Medicine; ATTEND Internal Medicine